=== PATIENT | female | born 1960 | race Caucasian/White ===

== ENCOUNTER 2023-05-07 09:08 | Outpatient (CLI) | payer BC, SELFPAY ==
--- NOTE | 2023-05-07 09:12 | MR_ITS ---
FINAL REPORT CLINICAL HISTORY: INTERNAL DERANGEMENT OF KNEE LEFT MEDIAL KNEE PAIN, INJURY IN DEC 2022. COMPARISON: None FINDINGS: Multiplanar MR imaging of the left knee was performed without contrast. There is a tear of the posterior horn of the medial meniscus, as well as a partial tear of the posterior root of the medial meniscus. There is medial subluxation of the body of the medial meniscus. The lateral meniscus is intact. The anterior and posterior cruciate ligaments are intact. The medial collateral ligament and lateral ligamentous complex are intact. The patellar and quadriceps tendons are intact. There is a nondisplaced fracture of the medial tibial plateau with adjacent bone marrow edema. 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 A moderate joint effusion is seen. The musculature is intact. No soft tissue mass or cyst is identified. IMPRESSION: Tear of the posterior horn of the medial meniscus and partial tear of the posterior root of the medial meniscus. There is medial subluxation of the body of the medial meniscus. Nondisplaced fracture medial tibial plateau with adjacent bone marrow edema. Severe medial compartment chondromalacia and moderate joint effusion. Reviewed, Interpreted and Dictated by Gibran King III, MD Transcribed by Tracy Jaimes Authenticated and [facility]
== END 2023-05-07 23:59 ==
LOC: RAD 09:09
PROVIDERS: PCP Family Medicine; Visit Provider Family Medicine
DX: M25.562 Pain in left knee (principal); M23.92 Unspecified internal derangement of left knee
CPT/HCPCS: 73721